=== PATIENT | female | born 1980 ===

== ENCOUNTER 2019-03-12 11:07 | Emergency (ER) | payer OTHER, MEDICAID, SELFPAY ==
[2019-03-12 11:13] VITALS: BP 159/90; PULSE 68; RESP 15; TEMP 36.9; O2SAT 99; BMI 37.8
--- NOTE | 2019-03-12 11:40 | ED.RECABL ---
HPI - Recheck/Abnormal Lab/Rx <Senait Walton PA-C - Last Filed: 03/12/19 20:31> General Chief Complaint: Recheck/Abnormal Lab/Rx Stated Complaint: Needs drug test done Time Seen by Provider: 03/12/19 11:17 Source: patient Mode of arrival: ambulatory Limitations: no limitations History of Present Illness HPI narrative: This 39-year-old female comes to ED requesting urine drug test. She is staying at a local [facility] and states that she tested positive for cocaine there, but she does not use cocaine and wants a repeat test. 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 She had 1 drink today and tested positive for alcohol. She denies any other substance use. She states that she is feeling fine without any other concerns or complaints Related Data Allergies Allergy/AdvReac Type Severity Reaction Status Date / Time No Known Drug Allergies Allergy Verified 03/12/19 11:21 Review of Systems <Senait Walton PA-C - Last Filed: 03/12/19 20:31> Review of Systems ROS Unobtainable: All systems reviewed & are unremarkable except as noted in HPI and below PFSH <Senait Walton PA-C - Last Filed: 03/12/19 20:31> Medical History (Updated 03/12/19 @ 12:08 by Senait Walton PA-C) HTN (hypertension) (Chronic) Hyperlipidemia (Chronic) Iron deficiency anemia (Chronic) History of opioid abuse (Resolved) Surgical History Status post appendectomy (Resolved) Comment: Denies cigarette smoking, moderate alcohol use Exam <Senait Walton PA-C - Last Filed: 03/12/19 20:31> Narrative Exam Narrative: GENERAL APPEARANCE: Patient sitting comfortably, in no distress. LUNGS: Clear to auscultation bilaterally. HEART: Rate and rhythm regular without murmur, normal S1 and S2, no S3 or S4. Initial Vital Signs Initial Vital Signs: Vital Signs Temperature 98.4 F 03/12/19 11:13 Pulse Rate 68 03/12/19 11:13 Respiratory Rate 15 03/12/19 11:13 Blood Pressure 159/90 H 03/12/19 11:13 Pulse Oximetry 99 03/12/19 11:13 <DO Sandrine Michelle Last Filed: 03/14/19 08:13> Initial Vital Signs Initial Vital Signs: Vital Signs Temperature 98.4 F 03/12/19 11:13 Pulse Rate 68 03/12/19 11:13 Respiratory Rate 15 03/12/19 11:13 Blood Pressure 159/90 H 03/12/19 11:13 Pulse Oximetry 99 03/12/19 11:13 Course <Senait Walton PA-C - Last Filed: 03/12/19 20:31> Orders Ordered: ED Orders 03/12/19 11:22 Urine Drug Screen, Rapid Stat Vital Signs - 8 hr 03/12/19 11:13 Temperature 98.4 F Pulse Rate 68 Respiratory Rate 15 Blood Pressure 159/90 H Pulse Oximetry 99 <DO Sandrine Michelle Last Filed: 03/14/19 08:13> Orders Ordered: ED Orders 03/12/19 11:22 Urine Drug Screen, Rapid Stat Vital Signs - 8 hr 03/12/19 11:13 Temperature 98.4 F Pulse Rate 68 Respiratory Rate 15 Blood Pressure 159/90 H Pulse Oximetry 99 MDM - Recheck/Abnormal Lab/Rx <HERVE Lee Last Filed: 03/12/19 20:31> Lab Data Lab Results 03/12/19 Range/Units 11:22 Urine Opiates Screen Negative (Negative) Ur Oxycodone Screen Negative (Negative) Urine Methadone Screen Positive H (Negative) Ur Barbiturates Screen Negative (Negative) U Tricyclic Antidepress Negative (Negative) Ur Phencyclidine Scrn Negative (Negative) Ur Amphetamines Screen Negative (Negative) U Methamphetamines Scrn Negative (Negative) Ur MDMA Scrn (Ecstasy) Negative (Negative) U Benzodiazepines Scrn Negative (Negative) Urine Cocaine Screen Positive H (Negative) U Marijuana (THC) Screen Negative (Negative) <DO Sandrine Michelle Last Filed: 03/14/19 08:13> Lab Data Lab Results 03/12/19 Range/Units 11:22 Urine Opiates Screen Negative (Negative) Ur Oxycodone Screen Negative (Negative) Urine Methadone Screen Positive H (Negative) Ur Barbiturates Screen Negative (Negative) U Tricyclic Antidepress Negative (Negative) Ur Phencyclidine Scrn Negative (Negative) Ur Amphetamines Screen Negative (Negative) U Methamphetamines Scrn Negative (Negative) Ur MDMA Scrn (Ecstasy) Negative (Negative) U Benzodiazepines Scrn Negative (Negative) Urine Cocaine Screen Positive H (Negative) U Marijuana (THC) Screen Negative (Negative) Discharge Plan Departure Patient Disposition: Home Clinical Impression: Encounter for drug screening Discharge Date/Time: 03/12/19 12:11 Interventions: ED Discharge Assessment Last Done: 03/12/19 12:11 Activity Restrictions/Additional Instructions: Your urine drug screen is positive for methadone today as well as cocaine. It is possible from what you have described that you were exposed to some trace amount of this that would not cause any intoxication but could make your drug screen positive. It may be helpful to repeat this in a few days. Referrals: Jace Michael [Primary Care Provider] - <Peter Nunes DO - Last Filed: 03/14/19 08:13> Cosign ED Attending Jackelineature Attestation: I was immediately available in the department for consultation. Documentation has been reviewed. I agree with assessment and plan.
[2019-03-12 11:47] LABS: Urine Amphetamines Negative (Negative); Urine Barbiturates Negative (Negative); Urine Benzodiazepines Negative (Negative); Urine Cocaine Positive (Negative); Urine MDMA Negative (Negative); Urine Methadone Positive (Negative); Urine Methamphetamines Negative (Negative); Urine Morphine/Opi cutoff 2000 Negative (Negative); Urine Oxycodone Negative (Negative); Urine Phencyclidine Negative (Negative); Urine Tetrahydrocannabinol Negative (Negative); Urine Tricyclic Antidepressant Negative (Negative)
[2019-03-12 12:10] VITALS: BP 149/95; PULSE 62; RESP 17; O2SAT 100
== END 2019-03-12 12:11 | disposition home or self-care (01) ==
PROVIDERS: Emergency Provider Internal Medicine; PCP Family Medicine Sports Medicine
DX: Z02.83 Encounter for blood-alcohol and blood-drug test (principal)
CPT/HCPCS: 80305; 99282